=== PATIENT | male | born 1965 | race Two or more races ===

== ENCOUNTER 2021-02-24 11:49 | Emergency (ER) | payer MEDICAID ==
[~2021-02-24] VITALS: Ht 167.6 cm; Wt 91.0 kg
[2021-02-24 11:53] VITALS: BP 136/74
[2021-02-24] MEDS ORDERED: IBUPROFEN 600MG TABLET PO STA (12:15)
[2021-02-24 12:40] LABS: BASOPHILS % 0.4 % (0.0-2.0); EOSINOPHILS % 0.6 % (0.0-5.0); HEMATOCRIT. 41.7 % (42.0-52.0); HEMOGLOBIN. 14.3 g/dL (14.0-18.0); LYMPHOCYTES % 13.6 % (20.0-50.0); MEAN CORPUSCULAR HEMOGLOBIN 30.2 pg (28.0-32.0); MEAN CORPUSCULAR VOLUME 88.1 fL (80.0-94.0); MEAN PLATELET VOLUME 7.8 fl (7.4-10.4); MONOCYTES % 11.5 % (2.0-8.0); NEUTROPHILS % 73.9 % (40.0-76.0); PLATELET 205 x1000/uL (130-400); RED BLOOD CELL COUNT 4.74 mill/uL (4.7-6.1); RED CELL DISTRIBUTION WIDTH 13.6 % (11.6-14.6)
[2021-02-24 12:47] LABS: CHLORIDE 108 mEq/L (98-107)
== END 2021-02-24 13:10 | disposition left against medical advice (07) ==
LOC: ER 11:49
DX: R10.31 Right lower quadrant pain (principal); I10 Essential (primary) hypertension; Z59.0 Homelessness; Z98.890 Other specified postprocedural states
CPT/HCPCS: 36415; 80053; 85025; 99283